=== PATIENT | male | born 1990 | race American Indian/Alaskan Native ===

== ENCOUNTER 2017-01-30 04:23 | Emergency (ER) | payer OTHER ==
[2017-01-30 04:28] VITALS: BP 152/83
[2017-01-30 05:08] LABS: Basophils % (Auto) 0.7 % (0.0-1.8); Eosinophils % (Auto) 1.2 % (0.0-4.3); Hematocrit 43.4 % (35.5-45.6); Hemoglobin 14.5 gm/dl (11.8-15.2); Mean Corpuscular HGB Conc 33 % (32-34); Mean Corpuscular Hemoglobin 28 pg (28-32); Mean Corpuscular Volume 85 fl (84-94); Platelet Count 439 K/mm3 (140-440); Red Blood Count 5.12 M/mm3 (3.65-5.03); Red Cell Distribution Width 13.2 % (13.2-15.2); White Blood Count 6.6 K/mm3 (4.5-11.0)
[2017-01-30 05:22] LABS: Anion Gap 23 mmol/L; Blood Urea Nitrogen 8 mg/dL (9-20); Calcium 9.7 mg/dL (8.4-10.2); Carbon Dioxide 22 mmol/L (22-30); Chloride 93.4 mmol/L (98-107); Glucose 129 mg/dL (75-100); Potassium 3.5 mmol/L (3.6-5.0); Sodium 135 mmol/L (137-145)
--- NOTE | 2017-01-30 19:05 | ED Elopement Review ---
ED Pt Elopement review - Results review Lab results: Laboratory Tests 01/30/17 01/30/17 04:52 04:52 WBC 6.6 RBC 5.12 H Hgb 14.5 Hct 43.4 MCV 85 MCH 28 MCHC 33 RDW 13.2 Plt Count 439 Lymph % (Auto) 32.3 [place] % (Auto) 4.2 Eos % (Auto) 1.2 Baso % (Auto) 0.7 Lymph # 2.1 [place] # 0.3 Eos # 0.1 Baso # 0.0 Seg Neutrophils % 61.6 Seg Neutrophils # 4.1 Sodium 135 L Potassium 3.5 L Chloride 93.4 L Carbon Dioxide 22 Anion Gap 23 BUN 8 L Creatinine 1.0 Estimated GFR > 60 BUN/Creatinine Ratio 8.00 Glucose 129 H Calcium 9.7 Troponin T < 0.010 - Call Back decision Pt Call Back Decision: No action required
== END 2017-01-30 04:53 | disposition left against medical advice (07) ==
LOC: ED 04:23
DX: R07.89 Other chest pain (principal); R00.2 Palpitations; Z72.0 Tobacco use; Z53.21 Procedure and treatment not carried out due to patient leaving prior to being seen by health care provider
CPT/HCPCS: 36415; 80048; 84484; 85025; 93005; 93010